=== PATIENT | female | born 1950 | race Caucasian/White ===

== ENCOUNTER 2021-12-19 09:31 | Outpatient (CLI) | payer MEDICARE ==
[2021-12-19 20:19] LABS: SARS-CoV-2 PCR by NAA Not Detected (NotDetected)
== END 2021-12-19 09:32 | disposition home or self-care (01) ==
LOC: CSHLAB 09:31
PROVIDERS: ATTEND Internal Medicine
DX: Z20.822 Contact with and (suspected) exposure to COVID-19 (principal)
CPT/HCPCS: U0003; U0005

== ENCOUNTER 2021-12-22 09:47 | Outpatient (CLI) | payer MEDICARE | END 2021-12-22 09:48 | disposition home or self-care (01) | LOC: CSHRAD 09:47 | PROVIDERS: ATTEND Internal Medicine | DX: R13.10 Dysphagia, unspecified (principal); R05.9 Cough, unspecified | CPT/HCPCS: 71046; 74220 ==

== ENCOUNTER 2022-06-11 12:01 | Outpatient (CLI) | payer MEDICARE | END 2022-06-11 12:02 | disposition home or self-care (01) | LOC: CSHLAB 12:01 | PROVIDERS: ATTEND Internal Medicine | DX: Z20.822 Contact with and (suspected) exposure to COVID-19 (principal) | CPT/HCPCS: 87811 ==

== ENCOUNTER 2022-06-14 13:01 | Outpatient (CLI) | payer MEDICARE | END 2022-06-14 13:02 | disposition home or self-care (01) | LOC: CSHCP 13:01 | PROVIDERS: ATTEND Internal Medicine | DX: R05.9 Cough, unspecified (principal); J45.909 Unspecified asthma, uncomplicated; Z87.891 Personal history of nicotine dependence | CPT/HCPCS: 94060; 94726; 94729; 94760 ==